=== PATIENT | female | born 1980 | race Caucasian/White ===

== ENCOUNTER 2020-06-13 17:06 | Emergency (ER) | payer MEDICARE, MEDICAID ==
[~2020-06-13] VITALS: Ht 154.9 cm; Wt 57.3 kg
[2020-06-13] MEDS ORDERED: NORTHERA100 MG PO (17:53)
[2020-06-13] MEDS ORDERED: FLUTICASON0.05 MG/AC NS (17:54)
[2020-06-13] MEDS ORDERED: IRON90 MG PO (17:55)
[2020-06-13] MEDS ORDERED: LIPITOR 10M10 MG/TAB PO (17:55)
[2020-06-13] MEDS ORDERED: POTASSIUM600 MG PO (17:55)
[2020-06-13] MEDS ORDERED: PRISTIQ ER25 MG PO (17:55)
[2020-06-13] MEDS ORDERED: TOPAMAX25 MG PO (17:56)
[2020-06-13 19:03] VITALS: BP 113/76
== END 2020-06-13 19:03 | disposition home or self-care (01) ==
LOC: ED 17:06
DX: M79.601 Pain in right arm (principal); F32.9 Major depressive disorder, single episode, unspecified; Z79.51 Long term (current) use of inhaled steroids
CPT/HCPCS: J1885; J2405

== ENCOUNTER 2020-11-24 13:57 | Emergency (ER) | payer MEDICARE, MEDICAID ==
[~2020-11-24 13:57] MED LIST: CARAFATE S1 GM/10 ML PO; FLUTICASON0.05 MG/AC NS; IRON90 MG PO; LIPITOR 10M10 MG/TAB PO; NORTHERA100 MG PO; NORTHERA200 MG PO; PANTOPRAZOLE SO40 MG PO; POTASSIUM600 MG PO; PRISTIQ ER25 MG PO; TOPAMAX25 MG PO
[2020-11-24 14:56] LABS: HEMATOCRIT 39.1 % (37.0-47.0); HEMOGLOBIN 12.5 g/dL (12.5-16.0); MEAN CELL VOLUME 88 fl (78-100); MEAN CORPUSCULAR HEMOGLOBIN 28 pg (27-31); MEAN CORPUSCULAR HGB CONC 32 g/dL (33-37); MEAN PLATELET VOLUME 10.9 fl (7.4-10.4); PLATELET COUNT 157 K/mm3 (130-400); RED BLOOD COUNT 4.43 M/mm3 (4.10-5.30); RED CELL DISTRIBUTION WIDTH 13.2 % (11.5-14.5); WHITE BLOOD COUNT 3.3 K/mm3 (4.8-10.8)
[2020-11-24 14:59] LABS: POTASSIUM 3.8 mmol/L (3.5-5.1); SODIUM 141 mmol/L (136-145)
[2020-11-24 15:01] LABS: CALCIUM 8.5 mg/dL (8.3-10.5)
[2020-11-24 15:02] LABS: GLUCOSE 79 mg/dL (65-105); TOTAL PROTEIN 6.5 g/dL (6.4-8.3)
[2020-11-24 15:03] LABS: CARBON DIOXIDE 22 mmol/L (22-29)
[2020-11-24 15:04] LABS: TOTAL BILIRUBIN 0.3 mg/dL (0.2-1.2)
[2020-11-24 15:07] LABS: AST-SGOT 24 U/L (5-34); LYMPHOCYTE 29 % (20-51); MONOCYTE 17 % (3-10); NEUTROPHILS 53 % (42-75)
[2020-11-24 15:08] LABS: ALT/SGPT 27 U/L (0-55)
[2020-11-24 15:16] LABS: TROPONIN-I < 0.03 ng/mL (<0.030)
[2020-11-24 16:25] VITALS: BP 96/63
== END 2020-11-24 16:17 | disposition home or self-care (01) ==
LOC: ED 13:57
PROVIDERS: Nurse Practitioner
DX: S30.0XXA Contusion of lower back and pelvis, initial encounter (principal); R55 Syncope and collapse; Z86.73 Personal history of transient ischemic attack (TIA), and cerebral infarction without residual deficits; Z88.1 Allergy status to other antibiotic agents; Z88.8 Allergy status to other drugs, medicaments and biological substances; Z79.899 Other long term (current) drug therapy; X58.XXXA Exposure to other specified factors, initial encounter; Y92.090 Kitchen in other non-institutional residence as the place of occurrence of the external cause
CPT/HCPCS: J1885

== ENCOUNTER 2021-01-29 09:52 | Emergency (ER) | payer MEDICARE, MEDICAID ==
[2021-01-29 11:36] VITALS: BP 102/70
== END 2021-01-29 11:37 | disposition home or self-care (01) ==
LOC: ED 09:52
DX: S16.1XXA Strain of muscle, fascia and tendon at neck level, initial encounter (principal); S20.211A Contusion of right front wall of thorax, initial encounter; I25.2 Old myocardial infarction; F32.9 Major depressive disorder, single episode, unspecified; Z95.0 Presence of cardiac pacemaker; Z98.84 Bariatric surgery status; Z98.82 Breast implant status; W17.89XA Other fall from one level to another, initial encounter; Y92.009 Unspecified place in unspecified non-institutional (private) residence as the place of occurrence of the external cause
CPT/HCPCS: J1885

== ENCOUNTER 2021-07-10 13:57 | Emergency (ER) | payer MEDICARE, MEDICAID ==
[~2021-07-10] VITALS: Ht 157.5 cm; Wt 55.6 kg
[2021-07-10 15:55] LABS: BASO # 0.02 (0.02-0.10); EOS # 0.23 (0.04-0.40); EOS % 3.7 % (1.0-5.0); HEMATOCRIT 40.8 % (37.0-47.0); LYMPH# 1.46 (1.50-4.00); MEAN CELL VOLUME 86 fl (78-100); MEAN CORPUSCULAR HEMOGLOBIN 27 pg (27-31); MEAN CORPUSCULAR HGB CONC 32 g/dL (33-37); MEAN PLATELET VOLUME 12.3 fl (7.4-10.4); MONO # 0.44 (0.20-0.80); NEU # 3.99 (1.40-6.50); PLATELET COUNT 262 K/mm3 (130-400); RED BLOOD COUNT 4.77 M/mm3 (4.10-5.30); RED CELL DISTRIBUTION WIDTH 13.7 % (11.5-14.5); WHITE BLOOD COUNT 6.1 K/mm3 (4.8-10.8)
[2021-07-10 15:57] LABS: ALBUMIN 3.7 g/dL (3.5-5.0); POTASSIUM 3.7 mmol/L (3.5-5.1); SODIUM 141 mmol/L (136-145)
[2021-07-10 15:59] LABS: CALCIUM 9.5 mg/dL (8.3-10.5)
[2021-07-10 16:00] LABS: GLUCOSE 89 mg/dL (65-105); TOTAL PROTEIN 6.4 g/dL (6.4-8.3)
[2021-07-10 16:01] LABS: CARBON DIOXIDE 22 mmol/L (22-29)
[2021-07-10 16:02] LABS: TOTAL BILIRUBIN 0.3 mg/dL (0.2-1.2)
[2021-07-10 16:05] LABS: AST-SGOT 46 U/L (5-34)
[2021-07-10 16:06] LABS: ALT/SGPT 42 U/L (0-55)
[2021-07-10 16:07] LABS: LIPASE 25 U/L (8-78)
[2021-07-10] MEDS ORDERED: SPRAVATO84 MG NS (16:08)
[2021-07-10] MEDS ORDERED: DULOXETINE30 MG PO (16:08)
[2021-07-10] MEDS ORDERED: ANASPAZ0.125 M1 PO (16:11)
[2021-07-10] MEDS ORDERED: ALPRAZOLAM0.5 MG PO (16:12)
[2021-07-10] MEDS ORDERED: AIMOVIG AU70 MG/1 ML SQ (16:12)
[2021-07-10] MEDS ORDERED: ESTRADIOL0.05 MG/24 TD (16:13)
[2021-07-10] MEDS ORDERED: IMITREX6 MG/0.52 SQ (16:13)
[2021-07-10] MEDS ORDERED: CLONIDINE HYDR0.1 MG PO (16:14)
[2021-07-10 16:15] LABS: TROPONIN-I < 0.03 ng/mL (<0.030)
[2021-07-10] MEDS ORDERED: QUETIAPINE FUM200 M1 PO (16:15)
[2021-07-10] MEDS ORDERED: ATORVASTATIN CA40 MG PO (16:15)
[2021-07-10] MEDS ORDERED: NEURONTIN300 MG/CAP PO (16:15)
[2021-07-10] MEDS ORDERED: TOPIRAMATE100 MG PO (16:16)
[2021-07-10] MEDS ORDERED: PRAZOSIN HYDROCH5 MG PO (16:16)
[2021-07-10] MEDS ORDERED: FLORINEF 00.1 MG/TAB PO (16:16)
[2021-07-10 20:04] LABS: URINE APPEARANCE CLEAR; URINE COLOR YELLOW; URINE GLUCOSE NEGATIVE (NEGATIVE); URINE PROTEIN(semi-quant) TRACE mg/dL (NEGATIVE)
[2021-07-10 20:05] LABS: URINE BILIRUBIN NEGATIVE (NEGATIVE); URINE BLOOD NEGATIVE (NEGATIVE); URINE KETONE 1+ (NEGATIVE); URINE LEUKOCYTE ESTERASE NEGATIVE (NEGATIVE); URINE NITRATE NEGATIVE (NEGATIVE); URINE UROBILINOGEN NORMAL (NORMAL)
[2021-07-11 12:46] VITALS: BP 108/61
== END 2021-07-11 13:29 | disposition short-term general hospital (02) ==
LOC: ED 13:57
PROVIDERS: Nurse Practitioner
DX: K56.600 Partial intestinal obstruction, unspecified as to cause (principal); I25.2 Old myocardial infarction; Z98.84 Bariatric surgery status; Z90.710 Acquired absence of both cervix and uterus; Z90.49 Acquired absence of other specified parts of digestive tract; Z88.8 Allergy status to other drugs, medicaments and biological substances; Z20.822 Contact with and (suspected) exposure to COVID-19
CPT/HCPCS: J1170; J2270; J2405; J3010; J7030; Q9967

== ENCOUNTER 2021-10-23 11:33 | Emergency (ER) | payer MEDICARE, MEDICAID ==
[~2021-10-23] VITALS: Wt 56.6 kg
[~2021-10-23 11:33] MED LIST changes: +AIMOVIG AU70 MG/1 ML SQ; +ALPRAZOLAM0.5 MG PO; +ANASPAZ0.125 M1 PO; +ATORVASTATIN CA40 MG PO; +CLONIDINE HYDR0.1 MG PO; +DULOXETINE30 MG PO; +ESTRADIOL0.05 MG/24 TD; +FLORINEF 00.1 MG/TAB PO; +IMITREX6 MG/0.52 SQ; +NEURONTIN300 MG/CAP PO; +PRAZOSIN HYDROCH5 MG PO; +QUETIAPINE FUM200 M1 PO; +SPRAVATO84 MG NS; +TOPIRAMATE100 MG PO
[2021-10-23] MEDS ORDERED: ROXICODONE 55 MG/TAB PO (11:47)
[2021-10-23 12:38] LABS: BASO # 0.03 K/mm3 (0.02-0.10); EOS # 0.18 K/mm3 (0.04-0.40); EOS % 2.9 % (1.0-5.0); HEMATOCRIT 32.9 % (37.0-47.0); HEMOGLOBIN 10.4 g/dL (12.5-16.0); LYMPH# 1.23 K/mm3 (1.50-4.00); MEAN CELL VOLUME 91 fl (78-100); MEAN CORPUSCULAR HEMOGLOBIN 29 pg (27-31); MEAN CORPUSCULAR HGB CONC 32 g/dL (33-37); MEAN PLATELET VOLUME 11.3 fl (7.4-10.4); MONO # 0.37 K/mm3 (0.20-0.80); NEU # 4.47 K/mm3 (1.40-6.50); PLATELET COUNT 220 K/mm3 (130-400); RED BLOOD COUNT 3.61 M/mm3 (4.10-5.30); RED CELL DISTRIBUTION WIDTH 14.3 % (11.5-14.5); WHITE BLOOD COUNT 6.3 K/mm3 (4.8-10.8)
[2021-10-23 12:42] LABS: ALBUMIN 3.5 g/dL (3.5-5.0); POTASSIUM 3.4 mmol/L (3.5-5.1)
[2021-10-23 12:44] LABS: CALCIUM 8.4 mg/dL (8.3-10.5)
[2021-10-23 12:45] LABS: TOTAL PROTEIN 5.8 g/dL (6.4-8.3)
[2021-10-23 12:47] LABS: TOTAL BILIRUBIN 0.2 mg/dL (0.2-1.2)
[2021-10-23 13:18] LABS: URINE APPEARANCE CLEAR; URINE BILIRUBIN 1+ (NEGATIVE); URINE BLOOD NEGATIVE (NEGATIVE); URINE COLOR YELLOW; URINE GLUCOSE NEGATIVE (NEGATIVE); URINE KETONE NEGATIVE (NEGATIVE); URINE LEUKOCYTE ESTERASE NEGATIVE (NEGATIVE); URINE NITRATE NEGATIVE (NEGATIVE); URINE PROTEIN(semi-quant) TRACE mg/dL (NEGATIVE); URINE UROBILINOGEN NORMAL (NORMAL); URINE WBC 0-1 /hpf (0-3)
[2021-10-23 14:52] VITALS: BP 106/71
== END 2021-10-23 14:40 | disposition home or self-care (01) ==
LOC: ED 11:33
PROVIDERS: Nurse Practitioner
DX: R05.9 Cough, unspecified (principal)
CPT/HCPCS: J1644; J2060; J2270; J2405; J7030

== ENCOUNTER 2021-11-17 09:50 | Emergency (ER) | payer MEDICARE, MEDICAID ==
[~2021-11-17 09:50] MED LIST changes: +ROXICODONE 55 MG/TAB PO
[2021-11-17 10:27] LABS: BASO # 0.04 K/mm3 (0.02-0.10); EOS # 0.42 K/mm3 (0.04-0.40); HEMATOCRIT 36.8 % (37.0-47.0); HEMOGLOBIN 11.7 g/dL (12.5-16.0); LYMPH# 1.98 K/mm3 (1.50-4.00); MEAN CELL VOLUME 90 fl (78-100); MEAN CORPUSCULAR HEMOGLOBIN 29 pg (27-31); MEAN CORPUSCULAR HGB CONC 32 g/dL (33-37); MEAN PLATELET VOLUME 10.2 fl (7.4-10.4); MONO # 0.45 K/mm3 (0.20-0.80); NEU # 5.43 K/mm3 (1.40-6.50); PLATELET COUNT 295 K/mm3 (130-400); RED BLOOD COUNT 4.08 M/mm3 (4.10-5.30); RED CELL DISTRIBUTION WIDTH 13.3 % (11.5-14.5); WHITE BLOOD COUNT 8.3 K/mm3 (4.8-10.8)
[2021-11-17 10:42] LABS: ALBUMIN 3.6 g/dL (3.5-5.0)
[2021-11-17 10:43] LABS: POTASSIUM 3.4 mmol/L (3.5-5.1)
[2021-11-17 10:44] LABS: CALCIUM 8.7 mg/dL (8.3-10.5)
[2021-11-17 10:45] LABS: TOTAL PROTEIN 6.3 g/dL (6.4-8.3)
[2021-11-17 10:47] LABS: TOTAL BILIRUBIN 0.1 mg/dL (0.2-1.2)
[2021-11-17] MEDS ORDERED: ZOFRAN ODT4 MG PO (12:25)
[2021-11-17 12:50] VITALS: BP 105/67
== END 2021-11-17 12:50 | disposition home or self-care (01) ==
LOC: ED 09:50
PROVIDERS: Physician Assistant
DX: R10.33 Periumbilical pain (principal); K59.00 Constipation, unspecified; R11.2 Nausea with vomiting, unspecified; F43.10 Post-traumatic stress disorder, unspecified; I25.2 Old myocardial infarction; F32.A Depression, unspecified; Z90.710 Acquired absence of both cervix and uterus; Z98.84 Bariatric surgery status; Z90.49 Acquired absence of other specified parts of digestive tract; Z79.899 Other long term (current) drug therapy
CPT/HCPCS: C9113; J1644; J2405; J3010; J7030; Q9967

== ENCOUNTER 2021-11-24 13:09 | Emergency (ER) | payer MEDICARE, MEDICAID ==
[~2021-11-24] VITALS: Ht 157.5 cm; Wt 51.5 kg
[~2021-11-24 13:09] MED LIST changes: +ZOFRAN ODT4 MG PO
[2021-11-24 15:05] LABS: BASO # 0.05 K/mm3 (0.02-0.10); EOS # 1.03 K/mm3 (0.04-0.40); EOS % 13.4 % (1.0-5.0); HEMATOCRIT 36.7 % (37.0-47.0); HEMOGLOBIN 11.3 g/dL (12.5-16.0); LYMPH# 1.55 K/mm3 (1.50-4.00); MEAN CELL VOLUME 92 fl (78-100); MEAN CORPUSCULAR HEMOGLOBIN 28 pg (27-31); MEAN CORPUSCULAR HGB CONC 31 g/dL (33-37); MEAN PLATELET VOLUME 11.2 fl (7.4-10.4); MONO # 0.65 K/mm3 (0.20-0.80); NEU # 4.42 K/mm3 (1.40-6.50); PLATELET COUNT 229 K/mm3 (130-400); RED BLOOD COUNT 3.98 M/mm3 (4.10-5.30); RED CELL DISTRIBUTION WIDTH 13.6 % (11.5-14.5); WHITE BLOOD COUNT 7.7 K/mm3 (4.8-10.8)
[2021-11-24 15:14] LABS: ALBUMIN 3.8 g/dL (3.5-5.0); POTASSIUM 4.2 mmol/L (3.5-5.1)
[2021-11-24 15:16] LABS: CALCIUM 9.2 mg/dL (8.3-10.5)
[2021-11-24 15:17] LABS: TOTAL PROTEIN 6.6 g/dL (6.4-8.3)
[2021-11-24 15:19] LABS: TOTAL BILIRUBIN 0.2 mg/dL (0.2-1.2)
[2021-11-24 15:45] LABS: URINE APPEARANCE HAZY; URINE BILIRUBIN NEGATIVE (NEGATIVE); URINE BLOOD TRACE (NEGATIVE); URINE COLOR YELLOW; URINE GLUCOSE NEGATIVE (NEGATIVE); URINE KETONE NEGATIVE (NEGATIVE); URINE LEUKOCYTE ESTERASE TRACE (NEGATIVE); URINE MUCUS PRESENT (NOT PRESENT); URINE NITRATE NEGATIVE (NEGATIVE); URINE PROTEIN(semi-quant) 1+ (NEGATIVE); URINE UROBILINOGEN NORMAL (NORMAL); URINE WBC 16-30 /hpf (0-3)
[2021-11-24] MEDS ORDERED: MACROBID 100 M100 MG PO (22:55)
[2021-11-24] MEDS ORDERED: ROXICODONE 55 MG/TAB PO (22:55)
[2021-11-24 23:55] VITALS: BP 124/80
== END 2021-11-24 23:55 | disposition home or self-care (01) ==
LOC: ED 13:09
PROVIDERS: Nurse Practitioner
DX: N39.0 Urinary tract infection, site not specified (principal); K59.00 Constipation, unspecified; Z98.84 Bariatric surgery status; Z90.49 Acquired absence of other specified parts of digestive tract; Z20.822 Contact with and (suspected) exposure to COVID-19; Z88.1 Allergy status to other antibiotic agents
CPT/HCPCS: J0696; J2060; J3010; J7030; J7120; Q9967

== ENCOUNTER 2021-12-22 21:26 | Emergency (ER) | payer MEDICARE, MEDICAID ==
[~2021-12-22] VITALS: Ht 157.5 cm; Wt 56.9 kg
[~2021-12-22 21:26] MED LIST changes: +MACROBID 100 M100 MG PO
[2021-12-22 23:18] LABS: BASO # 0.03 K/mm3 (0.02-0.10); EOS # 0.26 K/mm3 (0.04-0.40); HEMATOCRIT 27.1 % (37.0-47.0); HEMOGLOBIN 8.7 g/dL (12.5-16.0); LYMPH# 2.17 K/mm3 (1.50-4.00); MEAN CELL VOLUME 91 fl (78-100); MEAN CORPUSCULAR HEMOGLOBIN 29 pg (27-31); MEAN CORPUSCULAR HGB CONC 32 g/dL (33-37); MEAN PLATELET VOLUME 10.8 fl (7.4-10.4); PLATELET COUNT 275 K/mm3 (130-400); RED BLOOD COUNT 2.98 M/mm3 (4.10-5.30); RED CELL DISTRIBUTION WIDTH 14.8 % (11.5-14.5); WHITE BLOOD COUNT 6.6 K/mm3 (4.8-10.8)
[2021-12-22 23:22] LABS: ALBUMIN 3.4 g/dL (3.5-5.0); POTASSIUM 3.7 mmol/L (3.5-5.1)
[2021-12-22 23:23] LABS: CALCIUM 8.7 mg/dL (8.3-10.5)
[2021-12-22 23:24] LABS: TOTAL PROTEIN 5.5 g/dL (6.4-8.3)
[2021-12-22 23:35] LABS: TOTAL BILIRUBIN 0.1 mg/dL (0.2-1.2)
[2021-12-22 23:35] LABS: URINE COLOR DK RED
[2021-12-22 23:36] LABS: URINE APPEARANCE CLOUDY; URINE BILIRUBIN NEGATIVE (NEGATIVE); URINE BLOOD 250 ery/uL (NEGATIVE); URINE GLUCOSE NEGATIVE (NEGATIVE); URINE KETONE NEGATIVE (NEGATIVE); URINE LEUKOCYTE ESTERASE 1+ (NEGATIVE); URINE NITRATE POSITIVE (NEGATIVE); URINE PROTEIN(semi-quant) 2+ (NEGATIVE); URINE UROBILINOGEN NORMAL (NORMAL)
[2021-12-23] MEDS ORDERED: CEFDINIR300 MG PO (01:23)
[2021-12-23] MEDS ORDERED: ZOVIRAX400 MG PO (01:32)
[2021-12-23 01:44] VITALS: BP 123/79
== END 2021-12-23 01:44 | disposition home or self-care (01) ==
LOC: ED 21:26
PROVIDERS: Family Medicine
DX: N12 Tubulo-interstitial nephritis, not specified as acute or chronic (principal)
CPT/HCPCS: J0696; J2270; J7120

== ENCOUNTER 2022-01-03 17:36 | Emergency (ER) | payer MEDICARE, MEDICAID ==
[~2022-01-03 17:36] MED LIST changes: +CEFDINIR300 MG PO; +ZOVIRAX400 MG PO
[2022-01-03 18:16] LABS: BASO # 0.04 K/mm3 (0.02-0.10); EOS # 0.39 K/mm3 (0.04-0.40); EOS % 4.6 % (1.0-5.0); HEMATOCRIT 29.2 % (37.0-47.0); HEMOGLOBIN 9.1 g/dL (12.5-16.0); MEAN CELL VOLUME 90 fl (78-100); MEAN CORPUSCULAR HEMOGLOBIN 28 pg (27-31); MEAN CORPUSCULAR HGB CONC 31 g/dL (33-37); MEAN PLATELET VOLUME 10.2 fl (7.4-10.4); MONO # 0.82 K/mm3 (0.20-0.80); NEU # 4.99 K/mm3 (1.40-6.50); PLATELET COUNT 298 K/mm3 (130-400); RED BLOOD COUNT 3.25 M/mm3 (4.10-5.30); RED CELL DISTRIBUTION WIDTH 14.3 % (11.5-14.5); WHITE BLOOD COUNT 8.4 K/mm3 (4.8-10.8)
[2022-01-03 18:28] LABS: ALBUMIN 3.5 g/dL (3.5-5.0); POTASSIUM 3.6 mmol/L (3.5-5.1); SODIUM 143 mmol/L (136-145)
[2022-01-03 18:29] LABS: CALCIUM 9.1 mg/dL (8.3-10.5)
[2022-01-03 18:30] LABS: GLUCOSE 126 mg/dL (65-105); TOTAL PROTEIN 6.1 g/dL (6.4-8.3)
[2022-01-03 18:31] LABS: CARBON DIOXIDE 26 mmol/L (22-29)
[2022-01-03 18:32] LABS: TOTAL BILIRUBIN 0.2 mg/dL (0.2-1.2)
[2022-01-03 18:36] LABS: AST-SGOT 16 U/L (5-34)
[2022-01-03 18:37] LABS: ALT/SGPT 29 U/L (0-55)
[2022-01-03 18:46] LABS: TROPONIN-I < 0.030 ng/mL (<0.030)
[2022-01-03 19:04] LABS: URINE APPEARANCE HAZY; URINE BILIRUBIN NEGATIVE (NEGATIVE); URINE BLOOD 250 ery/uL (NEGATIVE); URINE COLOR YELLOW; URINE GLUCOSE NEGATIVE (NEGATIVE); URINE KETONE NEGATIVE (NEGATIVE); URINE LEUKOCYTE ESTERASE TRACE (NEGATIVE); URINE MUCUS PRESENT (NOT PRESENT); URINE NITRATE NEGATIVE (NEGATIVE); URINE PROTEIN(semi-quant) 1+ (NEGATIVE); URINE UROBILINOGEN NORMAL (NORMAL)
[2022-01-03 22:30] VITALS: BP 101/55
== END 2022-01-03 22:30 | disposition short-term general hospital (02) ==
LOC: ED 17:36
PROVIDERS: Physician Assistant
DX: K94.20 Gastrostomy complication, unspecified (principal); R31.9 Hematuria, unspecified; Z98.84 Bariatric surgery status
CPT/HCPCS: J2270; J2405; J7030; Q9967

== ENCOUNTER 2022-03-19 18:01 | Emergency (ER) | payer MEDICARE, MEDICAID ==
[~2022-03-19] VITALS: Ht 157.5 cm; Wt 52.4 kg
[2022-03-19] MEDS ORDERED: PERCOCET 325 MG1 TAB PO (18:16)
[2022-03-19] MEDS ORDERED: CYCLOBENZAPRINE10 M1 PO (18:16)
[2022-03-19] MEDS ORDERED: QUETIAPINE FUMA50 MG PO (18:21)
[2022-03-19 18:43] LABS: BASO # 0.04 K/mm3 (0.02-0.10); EOS # 0.52 K/mm3 (0.04-0.40); EOS % 11.5 % (1.0-5.0); HEMATOCRIT 32.7 % (37.0-47.0); HEMOGLOBIN 9.9 g/dL (12.5-16.0); LYMPH# 1.48 K/mm3 (1.50-4.00); MEAN CELL VOLUME 80 fl (78-100); MEAN CORPUSCULAR HEMOGLOBIN 24 pg (27-31); MEAN CORPUSCULAR HGB CONC 30 g/dL (33-37); MEAN PLATELET VOLUME 10.8 fl (7.4-10.4); MONO # 0.42 K/mm3 (0.20-0.80); NEU # 2.07 K/mm3 (1.40-6.50); PLATELET COUNT 241 K/mm3 (130-400); RED BLOOD COUNT 4.07 M/mm3 (4.10-5.30); RED CELL DISTRIBUTION WIDTH 16.3 % (11.5-14.5); WHITE BLOOD COUNT 4.5 K/mm3 (4.8-10.8)
[2022-03-19 18:54] LABS: ALBUMIN 3.6 g/dL (3.5-5.0); POTASSIUM 4.1 mmol/L (3.5-5.1); SODIUM 141 mmol/L (136-145)
[2022-03-19 18:55] LABS: CALCIUM 8.9 mg/dL (8.3-10.5)
[2022-03-19 18:56] LABS: GLUCOSE 93 mg/dL (65-105); TOTAL PROTEIN 5.9 g/dL (6.4-8.3)
[2022-03-19 18:57] LABS: CARBON DIOXIDE 25 mmol/L (22-29)
[2022-03-19 18:58] LABS: TOTAL BILIRUBIN 0.2 mg/dL (0.2-1.2)
[2022-03-19 19:01] LABS: AST-SGOT 38 U/L (5-34)
[2022-03-19 19:03] LABS: ALT/SGPT 42 U/L (0-55)
[2022-03-19 19:33] LABS: TROPONIN-I < 0.030 ng/mL (<0.030)
[2022-03-19 19:38] LABS: PARTIAL THROMBOPLASTIN TIME 30.8 SECONDS (21.0-32.0); PROTHROMBIN TIME 10.6 SECONDS (9.0-12.0)
[2022-03-19 19:49] LABS: D-DIMER 0.34 mg/L FEU (0.15-0.50)
[2022-03-19 20:07] LABS: URINE APPEARANCE CLEAR; URINE BILIRUBIN NEGATIVE (NEGATIVE); URINE COLOR YELLOW; URINE GLUCOSE NEGATIVE (NEGATIVE); URINE KETONE NEGATIVE (NEGATIVE); URINE NITRATE NEGATIVE (NEGATIVE); URINE PROTEIN(semi-quant) TRACE (NEGATIVE); URINE UROBILINOGEN NORMAL (NORMAL)
[2022-03-19 20:08] LABS: URINE BLOOD 250 ery/uL (NEGATIVE); URINE LEUKOCYTE ESTERASE NEGATIVE (NEGATIVE); URINE MUCUS PRESENT (NOT PRESENT); URINE WBC 0-1 /hpf (0-3)
[2022-03-19 22:15] VITALS: BP 107/84
== END 2022-03-19 22:15 | disposition home or self-care (01) ==
LOC: ED 18:01
PROVIDERS: Nurse Practitioner
DX: R07.89 Other chest pain (principal); Z79.82 Long term (current) use of aspirin
CPT/HCPCS: J2405; J3490

== ENCOUNTER 2022-03-26 05:52 | Emergency (ER) | payer MEDICARE, MEDICAID ==
[~2022-03-26] VITALS: Ht 157.5 cm; Wt 51.9 kg
[~2022-03-26 05:52] MED LIST changes: +CYCLOBENZAPRINE10 M1 PO; +PERCOCET 325 MG1 TAB PO; +QUETIAPINE FUMA50 MG PO
[2022-03-26] MEDS ORDERED: COPPER PO (06:10)
[2022-03-26] MEDS ORDERED: B-12 (06:10)
[2022-03-26 07:41] LABS: BASO # 0.02 K/mm3 (0.02-0.10); EOS % 1.8 % (1.0-5.0); HEMATOCRIT 32.2 % (37.0-47.0); HEMOGLOBIN 9.8 g/dL (12.5-16.0); LYMPH# 0.73 K/mm3 (1.50-4.00); MEAN CELL VOLUME 81 fl (78-100); MEAN CORPUSCULAR HEMOGLOBIN 25 pg (27-31); MEAN CORPUSCULAR HGB CONC 30 g/dL (33-37); MEAN PLATELET VOLUME 10.4 fl (7.4-10.4); MONO # 0.16 K/mm3 (0.20-0.80); NEU # 10.11 K/mm3 (1.40-6.50); PLATELET COUNT 199 K/mm3 (130-400); RED BLOOD COUNT 3.96 M/mm3 (4.10-5.30); RED CELL DISTRIBUTION WIDTH 18.3 % (11.5-14.5); WHITE BLOOD COUNT 11.2 K/mm3 (4.8-10.8)
[2022-03-26 08:06] LABS: ALBUMIN 3.2 g/dL (3.5-5.0); POTASSIUM 3.5 mmol/L (3.5-5.1)
[2022-03-26 08:07] LABS: CALCIUM 8.2 mg/dL (8.3-10.5)
[2022-03-26 08:08] LABS: TOTAL PROTEIN 5.3 g/dL (6.4-8.3)
[2022-03-26 08:10] LABS: TOTAL BILIRUBIN 0.2 mg/dL (0.2-1.2)
[2022-03-26 10:29] VITALS: BP 92/51
== END 2022-03-26 09:51 | disposition home or self-care (01) ==
LOC: ED 05:52
PROVIDERS: Nurse Practitioner
DX: K59.00 Constipation, unspecified (principal); Z90.49 Acquired absence of other specified parts of digestive tract; Z93.2 Ileostomy status
CPT/HCPCS: J2405; J3010; Q9967

== ENCOUNTER 2022-07-02 11:59 | Emergency (ER) | payer MEDICAID ==
[~2022-07-02] VITALS: Wt 48.1 kg
[~2022-07-02 11:59] MED LIST changes: +B-12; +COPPER PO
[2022-07-02 12:40] LABS: BASO # 0.05 K/mm3 (0.02-0.10); EOS # 0.29 K/mm3 (0.04-0.40); EOS % 2.7 % (1.0-5.0); HEMATOCRIT 28.8 % (37.0-47.0); HEMOGLOBIN 9.1 g/dL (12.5-16.0); LYMPH# 1.55 K/mm3 (1.50-4.00); MEAN CELL VOLUME 90 fl (78-100); MEAN CORPUSCULAR HEMOGLOBIN 29 pg (27-31); MEAN CORPUSCULAR HGB CONC 32 g/dL (33-37); MONO # 0.96 K/mm3 (0.20-0.80); NEU # 8.01 K/mm3 (1.40-6.50); PLATELET COUNT 319 K/mm3 (130-400); RED BLOOD COUNT 3.19 M/mm3 (4.10-5.30); RED CELL DISTRIBUTION WIDTH 14.4 % (11.5-14.5); WHITE BLOOD COUNT 10.9 K/mm3 (4.8-10.8)
[2022-07-02 13:47] LABS: CALCIUM 8.7 mg/dL (8.3-10.5)
[2022-07-02 13:48] LABS: TOTAL PROTEIN 5.8 g/dL (6.4-8.3)
[2022-07-02 14:24] LABS: TOTAL BILIRUBIN 0.2 mg/dL (0.2-1.2)
[2022-07-02 15:40] VITALS: BP 93/62
== END 2022-07-02 15:42 | disposition left against medical advice (07) ==
LOC: ED 11:59
PROVIDERS: Nurse Practitioner
DX: T85.848A Pain due to other internal prosthetic devices, implants and grafts, initial encounter (principal); R10.84 Generalized abdominal pain; Z90.49 Acquired absence of other specified parts of digestive tract; Z93.2 Ileostomy status
CPT/HCPCS: Q9967

== ENCOUNTER 2022-07-21 01:43 | Emergency (ER) | payer MEDICAID ==
[2022-07-21 04:16] VITALS: BP 128/78
== END 2022-07-21 04:19 | disposition home or self-care (01) ==
LOC: ED 01:43
DX: K91.840 Postprocedural hemorrhage of a digestive system organ or structure following a digestive system procedure (principal); Z90.49 Acquired absence of other specified parts of digestive tract; Z98.84 Bariatric surgery status
CPT/HCPCS: J1170; J2405

== ENCOUNTER 2022-10-01 18:16 | Emergency (ER) | payer MEDICAID ==
[~2022-10-01] VITALS: Ht 157.5 cm; Wt 46.0 kg
[2022-10-01 20:38] VITALS: BP 121/99
== END 2022-10-01 20:40 | disposition home or self-care (01) ==
LOC: ED 18:16
DX: Z46.59 Encounter for fitting and adjustment of other gastrointestinal appliance and device (principal)